=== PATIENT | male | born 2005 | race Caucasian/White ===

== ENCOUNTER 2025-03-11 10:51 | Inpatient (IN) | payer MEDICAID ==
[~2025-03-11] VITALS: Ht 180.3 cm; Wt 105.3 kg
--- NOTE | 2025-03-11 11:06 | ELECTROCARDIOGRAPH REPORT ---
[facility] Test Date: 2025-03-11 Test Time: 11:02:47 Pat Name: DARY QUICK Department: [facility]- Patient ID: [facility]-[id number] Room: Gender: M Switchboard And Control Room Operator: : 2005 Requested By: BOO KERR Order Number: [id number] Reading MD: Measurements Intervals Cody Rate: 161 P: 58 DE: 119 QRS: -16 QRSD: 97 T: 33 QT: 254 QTc: 416 Interpretive Statements Sinus tachycardia RSR' in V1 or V2, probably normal variant Probable LVH with secondary repol abnrm Please click the below link to view image of tracing.
[2025-03-11] MEDS: normal saline 1000ml 1,000 ML IV ONE ×3 (11:25→13:48)
--- NOTE | 2025-03-11 11:31 | Physician Documentation ---
History of Present Illness ~ Chief Complaint: Cough w/fever Stated Complaint: COLD SYMPTOMS WITH CP Time Seen by MD: 11:06 HPI 19 year old male patient who is currently studying at [employer], came in to ED with chief complaints of recurrent episodes of fever since the 27 of February. Initially went to [place] urgent care however notice a had mild shortness of breath and tachycardia and was redirected to our emergency department. Patient stated that he recorded a temperature on the 27 of February and since then has had multiple episodes associated with mild headaches, nausea and with diffuse myalgias throughout. He noticed his tempera ture comes down after taking the Tylenol and records again after some time. 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 Patient endorsed runny nose, fatigue, tiredness, sore throat, mild headache, cough with minimal sputum. He also complained of increased shortness of breath while taking deep breaths. He denied any sexual history, any active lesions on his body, abdominal pain or ulcers in his mouth or tenderness/stiffness of his neck Medication Reconciliation Allergies: Coded Allergies: lactose (Verified Allergy, Unknown, 03/12/25) Lactose Intolerant Scheduled Cholecalciferol (Vitamin D3) (Vitamin D3), 2 TAB PO DAILY, (Reported) Guanfacine HCl (Guanfacine HCl ER), 1 TAB PO DAILY, (Reported) Lactobacillus Rhamnosus (Culturelle), 1 CAP PO DAILY Levofloxacin (Levofloxacin), 1 TAB PO DAILY Multivitamin (Multivitamin), 1 TAB PO DAILY, (Reported) Past Medical History Past Medical History: *PSYCH* (ADHD, recently started taking guaifenesin tablets) Smoking Status: Never smoker Alcohol Use: None Drug Use: none (Denied any history of smoking, alcohol, drug use. Denied any exposure to secondhand smoking as well) Review of Systems ROS Constitutional: Reports Fever, no dizziness, weakness noted, no decrease in appetite HEENT: Normal vision. Mild sore throat, no epistaxis,no tinnitus Cardiovascular: No chest pain/discomfort, palpitations, syncope. no pedal edema Respiratory: Reports sob, reports cough, no hemoptysis Gastrointestinal: No abdominal pain, nausea, vomiting. No diarrhea, melena. Genitourinary: No frquency, urgency, incontinence, nocturia. No dysuria, hematuria Musculoskeletal: Myalgia reported Endocrine: Reports fatigue, no polydipsia, no polyuria. No heat or cold intolerance Neurologic: No headache, vertigo. No weakness, numbness or tingling of extremities Psychiatric: No hallucinations/delusions, no anhedonia, no suicidal ideation Hematologic: No bruises Physical Exam Vital Signs: Temperature: 103.2, Source: Oral, Heart Rate: 168, Respiratory Rate: 16, BP: 135/83, Pulse Oximetry: 97, Weight: 105.300 Oxygen Flow Rate: 0 Physical Exam General: Awake, oriented to person, place and time HEENT: Conjunctive are pink, sclerae clear, no icterus, pupil is equal in both sides, reactive to light, no ear discharge, no pharyngeal erythema or an edema. Neck: Supple, no JVD, no lymphadenopathy and thyromegaly. Chest: Increased work of breathing noted, no additional sounds no rhonchi no wheezing at the moment. Cardiovascular: S1-S2 regular sinus rhythm, tachycardia, no gallops, no rubs, no murmurs Abdomen: No visible peristalsis, Bowel sounds present on auscultation, soft, no tenderness, no guarding, no rigidity Extremities: No obvious deformities, no pitting edema bilaterally, capillary refill intact, peripheral pulsations are intact on both sides Neurologic: Mental status: alert and conscious, oriented to place, person and time, preserved memory, normal speech. Cranial nerves I-XII: Normal. Motor system: Preserved power, coordination, no evidenced involuntary movements, strength 5/5 in four extremities. Sensory system: Preserved temperature, pain and vibration sensation. 2+ deep tendon reflexes in biceps, triceps, quadriceps. Negative Babinski. Cerebellar: No nystagmus, dysdiadochokinesia, normal [id number] testing. Musculoskeletal: No joint swelling, deformities, inflammations, and no scoliosis and back tenderness Skin: Warm and dry. Dry oral mucosa. Progress Results/Orders Results/Orders Orders - TIARA KIM RES Culture Blood (03/11/25 11:49) Completed Orders - TIARA KIM RES Cbc/Diff (03/11/25 11:21) CMP (03/11/25 11:21) Lacticsepsis (03/11/25 11:21) ESR (03/11/25 11:21) Procalcitonin (03/11/25 11:21) Acetaminophen 325mg Tablet (Tylenol Tabl (03/11/25 11:25) Influenza Type A&B Rapid Test (03/11/25 11:16) Man Diff (03/11/25 11:22) Lactic,2hr (03/11/25 12:57) Vital Signs 03/11/25 03/11/25 03/11/25 03/11/25 10:52 11:45 13:07 14:41 Temp 103.2 Pulse 168 137 128 125 Resp 16 12 15 B/P (MAP) 135/83 156/82 (106) 114/79 (91) 136/83 (100) Pulse Ox 97 95 95 91 O2 Flow Rate 0 0 0 0 03/11/25 03/11/25 17:18 18:02 Temp 99.4 Pulse 128 125 Resp 21 20 B/P (MAP) 137/88 (104) 123/78 (93) Pulse Ox 98 97 O2 Flow Rate 0 0 Laboratory Tests Test 03/11/25 11:16 03/11/25 11:22 03/11/25 12:40 03/11/25 13:06 Influenza Type A Antigen Negative Influenza Type B Antigen Negative SARS-CoV-2 Antigen (Rapid) Negative White Blood Count 25.1 *H Red Blood Count 4.51 L Hemoglobin 14.5 Hematocrit 41.4 L Mean Corpuscular Volume 91.7 Mean Corpuscular Hemoglobin 32.1 H Mean Corpuscular Hemoglobin Concent 34.9 Red Cell Distribution Width 11.8 Platelet Count 636 H Mean Platelet Volume 6.7 L Neutrophils (%) (Auto) 85.8 H Lymphocytes (%) (Auto) 6.6 L Monocytes (%) (Auto) 7.1 Eosinophils (%) (Auto) 0.3 Basophils (%) (Auto) 0.2 Neutrophils # (Auto) 21.5 H Lymphocytes # (Auto) 1.6 Monocytes # (Auto) 1.8 H Eosinophils # (Auto) 0.1 Basophils # (Auto) 0.1 CBC Comment Differential Total Cells Counted 100 Neutrophils % (Manual) 79.0 H Band Neutrophils % 8.0 Lymphocytes % (Manual) 7.0 L Monocytes % (Manual) 6.0 Platelet Estimate Increased Red Blood Cell Morphology Normal Basophilic Stippling Erythrocyte Sedimentation Rate 57 H Sodium Level 138 Potassium Level 3.6 Chloride Level 103 Carbon Dioxide Level 25.2 Anion Gap 10 Blood Urea Nitrogen 6 L Creatinine 0.82 Estimated GFR/1.73 m2 > 90 BUN/Creatinine Ratio 7.3 L Glucose Level 124 H Lactic Acid Level 2.1 H 0.8 Calcium Level 9.4 Total Bilirubin 0.9 Aspartate Amino Transf (AST/SGOT) 17 Alanine Aminotransferase (ALT/SGPT) 36 Alkaline Phosphatase 87 Total Protein 8.2 Albumin 3.6 Globulin 4.6 H Albumin/Globulin Ratio 0.8 L Procalcitonin < 0.05 Chemistry Comments Urine Specimen Description Urinal Urine Color Yellow Urine Clarity Clear Urine pH 7.5 Urine Specific [place] 1.010 Urine Protein Negative Urine Glucose (UA) Negative Urine Ketones Negative Urine Occult Blood Negative Urine Nitrite Negative Urine Bilirubin Negative Urine Urobilinogen 0.2 Urine Leukocyte Esterase Negative Volume Urine Centrifuged 10 ml Urine Comment Test 03/11/25 14:47 White Blood Count 19.3 H Red Blood Count 3.88 L Hemoglobin 12.7 L Hematocrit 36.3 L Mean Corpuscular Volume 93.6 Mean Corpuscular Hemoglobin 32.7 H Mean Corpuscular Hemoglobin Concent 34.9 Red Cell Distribution Width 11.7 Platelet Count 550 H Mean Platelet Volume 6.8 L Neutrophils (%) (Auto) 85.2 H Lymphocytes (%) (Auto) 7.9 L Monocytes (%) (Auto) 6.3 Eosinophils (%) (Auto) 0.1 Basophils (%) (Auto) 0.5 Neutrophils # (Auto) 16.4 H Lymphocytes # (Auto) 1.5 Monocytes # (Auto) 1.2 H Eosinophils # (Auto) 0.0 Basophils # (Auto) 0.1 CBC Comment Hemoglobin A1c 5.1 Microbiology Date/Time Source Procedure Growth Status 03/11/25 13:06 Blood Arm Left Blood Culture - Preliminary NO GROWTH AFTER 1 DAY Resulted EKG/XRAY/CT/US/VASC/MRI EKG : Additional Comment EKG as interpreted by ED MD indicating sinus tachycardia at a rate of 135 beats per minute, no ischemia, normal axis Chest X-Ray : Additional Comments PROCEDURE: DI CHEST,SINGLE VIEW ED physician read: Normal cardiac silhouette, no infiltrates, normal bony structures History: CP COMPARISON: None TECHNIQUE: Single view of the chest. FINDINGS: The lung parenchyma is clear. No pleural effusion. Cardiomediastinal silhouette is normal. IMPRESSION: 1. No acute cardiopulmonary disease. : Impression EXAM: CT CTA CHEST PE W/ IV CONTRAST HISTORY: r/o PE, assess for occult PNA COMPARISON: Chest x-ray from earlier same day. TECHNIQUE: Helical CT images of the chest were performed with 100 mL omnipaque 350 IV contrast using pulmonary CTA protocol. Sagittal and coronal reformatted images and 3D MIP images were obtained. This CT exam was performed using 1 or more of the following dose reduction techniques: Automated exposure control, adjustment of the mA and/or kv according to patient size, or the use of iterative reconstruction techniques. Radiation Dose: Chest: CTDI volume is 24.84 mGy. Dose-length product is 924 mGy*cm. FINDINGS: No central pulmonary arterial filling defects are identified. Suboptimal contrast timing and patient motion artifact limited evaluation of the more peripheral pulmonary arteries. There are patchy and confluence infiltrates in the right lower lobe inferomedially. There is central peribronchial thickening, greater on the right. No pneumothorax, consolidative infiltrates, pleural effusions, pulmonary edema, or noncalcified pulmonary nodules are identified. There are enlarged reactive lymph nodes in the right hilum.. The heart is not enlarged. The central pulmonary arteries are ectatic. No thoracic aortic aneurysm or dissection. There is moderate bilateral gynecomastia. IMPRESSION: 1. No evidence of central pulmonary embolism. Evaluation of the more peripheral pulmonary arteries is limited by suboptimal contrast timing and patient motion artifact. 2. Right lower lobe pneumonia. 3. Reactive airways disease. 4. Pulmonary arterial hypertension. Medical Decision Making Additional information obtaine: family Findings - Differential Dx:Considerations: Include: Influenza, Meningitis, Pneumonia, Pulmonary embolus, Respiratory failure, Sepsis, Viral Syndrome Additional Comment 19-year-old male presenting with sustained tachycardia and fever. Labs and imaging were ordered. Labs indicating severe leukocytosis with a WBC count of 25. Patient was also initially very tachycardic with a heart rate in the 130s to 140s. He was febrile with a fever of 102. He was given p.o. acetaminophen and started on IV fluids. He was given a total of 3 L of IV normal saline with only mild improvement of his heart rate to the 120s. Chest x-ray was unremarkable however given his sustained tachycardia a CT angiogram of the chest was done to rule out pulmonary embolism. It was negative for PE however it did indicate that he does have a occult pneumonia present. Patient was treated with IV ceftriaxone and IV azithromycin. Given these findings the patient needs antibiotic therapy and will be admitted for further treatment and care. All labs and imaging reviewed. Social determinants of health considered. Chronic medical conditions considered. Departure Disposition: ADMITTED INPATIENT Admitted to Inpatient Unit: to hospitalist Impression: Primary Impression: Pneumonia Additional Impressions: Leukocytosis Tachycardia Condition: Guarded Referrals: NO PRIMARY CARE PROVIDER (PCP) Prescriptions Lactobacillus Rhamnosus (Culturelle) 10 Billion Cell Capsule 1 CAP PO DAILY for 30 Days, #30 CAP 0 Refills Prov: JOAN DUBON, ALTON 03/12/25 Levofloxacin (Levofloxacin) 750 Mg Tablet 1 TAB PO DAILY for 7 Days, #7 TAB Prov: JOAN DUBON RES 03/12/25 Critical Care Note Total Time (mins): 35 Critical Care Note The very real possibility of a deterioration of this patient's condition required the highest level of my preparedness for sudden, emergent intervention. I provided critical care services, which included medication orders, frequent reevaluations of the patient's condition and response to treatment, ordering and reviewing test results, and discussing the case with various consultants. Excludes time spent performing separately billable procedures. The critical care time associated with the care of the patient was. Signature Scribe Signature: - Attestation: - TIARA KIM RES Mar 11, 2025 11:31 BOO KERR MD Mar 11, 2025 17:35
[2025-03-11 11:37] LABS: MEAN PLATELET VOLUME 6.7 FL (7.4-10.4); RED CELL DISTRIBUTION WIDTH 11.8 % (11.5-14.5)
--- NOTE | 2025-03-11 11:41 | RADIOLOGY REPORT ---
PROCEDURE: DI CHEST,SINGLE VIEW History: CP COMPARISON: None TECHNIQUE: Single view of the chest. FINDINGS: The lung parenchyma is clear. No pleural effusion. Cardiomediastinal silhouette is normal. IMPRESSION: 1. No acute cardiopulmonary disease.
[2025-03-11 11:53] LABS: INFLUENZA TYPE A ANTIGEN RAPID NEGATIVE (Negative); INFLUENZA TYPE B ANTIGEN RAPID NEGATIVE (Negative)
[2025-03-11 11:56] LABS: BANDS% (MANUAL) 8.0 % (0-10); LYMPHOCYTES % (MANUAL) 7.0 % (21-51); MONOCYTES % (MANUAL) 6.0 % (2-12); NEUTROPHILS % (MANUAL) 79.0 % (42-75); PLATELET ESTIMATE INCREASED
[2025-03-11 12:10] LABS: CREATININE 0.82 MG/DL (0.60-1.10); TOTAL CARBON DIOXIDE 25.2 MMOL/L (24-32); eCRCL 154 ML/MIN; eGFR > 90 ML/MIN
[2025-03-11] MEDS: CefTRIAXone/D5W-Rocephin 1gm 50 ML IV ONE (12:50)
[2025-03-11 12:59] LABS: LEUKOCYTE ESTERASE ,URINE NEGATIVE (Neg); NITRITES, URINE NEGATIVE (Neg); OCCULT BLOOD,URINE NEGATIVE (Neg)
[2025-03-11 13:02] LABS: UA COLLECTION TYPE URINAL
[2025-03-11 15:07] LABS: MEAN PLATELET VOLUME 6.8 FL (7.4-10.4); RED CELL DISTRIBUTION WIDTH 11.7 % (11.5-14.5)
[2025-03-11] MEDS ORDERED: iohexol 300mg/ml 100ml inj. ONE (15:40)
--- NOTE | 2025-03-11 16:39 | RADIOLOGY REPORT ---
EXAM: CT CTA CHEST PE W/ IV CONTRAST HISTORY: r/o PE, assess for occult PNA COMPARISON: Chest x-ray from earlier same day. TECHNIQUE: Helical CT images of the chest were performed with 100 mL omnipaque 350 IV contrast using pulmonary CTA protocol. Sagittal and coronal reformatted images and 3D MIP images were obtained. This CT exam was performed using 1 or more of the following dose reduction techniques: Automated exposure control, adjustment of the mA and/or kv according to patient size, or the use of iterative reconstruction techniques. Radiation Dose: Chest: CTDI volume is 24.84 mGy. Dose-length product is 924 mGy*cm. FINDINGS: No central pulmonary arterial filling defects are identified. Suboptimal contrast timing and patient motion artifact limited evaluation of the more peripheral pulmonary arteries. There are patchy and confluence infiltrates in the right lower lobe inferomedially. There is central peribronchial thickening, greater on the right. No pneumothorax, consolidative infiltrates, pleural effusions, pulmonary edema, or noncalcified pulmonary nodules are identified. There are enlarged reactive lymph nodes in the right hilum.. The heart is not enlarged. The central pulmonary arteries are ectatic. No thoracic aortic aneurysm or dissection. There is moderate bilateral gynecomastia. IMPRESSION: 1. No evidence of central pulmonary embolism. Evaluation of the more peripheral pulmonary arteries is limited by suboptimal contrast timing and patient motion artifact. 2. Right lower lobe pneumonia. 3. Reactive airways disease. 4. Pulmonary arterial hypertension.
[2025-03-11] MEDS: azithromycin/NS 500mg/250ml 250 ML IV ONE (17:09)
[2025-03-11] MEDS ORDERED: CHOL100012 PO (17:18)
[2025-03-11] MEDS ORDERED: GUAN1TAB28 PO (17:18)
[2025-03-11] MEDS ORDERED: MULT-1249 PO (17:18)
[2025-03-11] MEDS ORDERED: mag hydrox/Alum hydrox/simeth 30ml oral suspension PO PRN (18:10)
[2025-03-11] MEDS ORDERED: ondansetron/PF 4mg/2ml inj IV PRN (18:10)
[2025-03-11] MEDS ORDERED: potassium Cl 40MEQ/1/2NS 520ml 520 ML IV PRN (18:10)
[2025-03-11] MEDS ORDERED: magnesium Cl slow-release 64mg tablet PO PRN (18:10)
[2025-03-11] MEDS ORDERED: potassium Cl 20 mEq SR tablet PO PRN ×2 (18:10)
[2025-03-11] MEDS ORDERED: magnesium sulf-water 2g/50mL 50 ML IV PRN (18:10)
[2025-03-11] MEDS ORDERED: magnesium hydroxide 30ml (MOM) UD suspension PO PRN (18:10)
[2025-03-11] MEDS ORDERED: magnesium sulf-water 4G/100mL 100 ML IV PRN (18:10)
--- NOTE | 2025-03-11 18:28 | HISTORY AND PHYSICAL-Residence ---
History & Physical Providers to CC Resident Creating Document: BENJAMINALTON KHOURY ~ History of Present Illness Reason for Admit\Complaint: PNEUMONIA History of Present Illness This is a 19 year old male patient studying at [employer], came in to ED with chief complaints of recurrent episodes of fever since the 27 of February. Today he went to [place] urgent care where he was found to be tachycardic and was redirected to our emergency department. Patient stated that he recorded a temperature on the 27 of February and since then has had multiple episodes associated with mild headaches, nausea and with diffuse myalgias throughout. He noticed his temperature comes down after taking the Tylenol and records again after some time. 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 Patient endorsed runny nose, fatigue, tiredness, sore throat, mild headache, cough with minimal sputum. He denies any shortness of breath at present. He denied any sexual history, abdominal pain or ulcers in his mouth or tenderness/stiffness of his neck. Patient denies any recent travel history. Allergies: Coded Allergies: lactose (Verified Allergy, Unknown, 03/12/25) Lactose Intolerant Home Medications Home Medications Active Reported Multivitamin 1 Each Tablet 1 Tab PO DAILY 30 Days Vitamin D3 (Cholecalciferol (Vitamin D3)) 25 Mcg (1000 Unit) Tablet 2 Tab PO DAILY 30 Days Guanfacine HCl ER (Guanfacine HCl) 1 Mg Tab.er.24h 1 Tab PO DAILY 30 Days Past Medical History Past Medical History ADHD Past Surgical History Surgical History Comment No significant surgical history Past Social History Social History Comment Patient never smoked Never drank alcohol Patient lives in a dorm at [employer]. Alcohol Use: None Drug Use: None (Denied any history of smoking, alcohol, drug use. Denied any exposure to secondhand smoking as well) ROS ROS Constitutional: Reports Fever, no dizziness, weakness noted, no decrease in appetite HEENT: Normal vision. Mild sore throat, no epistaxis,no tinnitus Cardiovascular: No chest pain/discomfort, palpitations, syncope. no pedal edema Respiratory: No shortness of breath, reports cough, no hemoptysis Gastrointestinal: No abdominal pain, report nausea, no vomiting. No diarrhea, melena. Genitourinary: No frquency, urgency, incontinence, nocturia. No dysuria, hematuria Musculoskeletal: Myalgia reported Endocrine: Reports fatigue, no polydipsia, no polyuria. No heat or cold intolerance Neurologic: No headache, vertigo. No weakness, numbness or tingling of extremities Psychiatric: No hallucinations/delusions, no anhedonia, no suicidal ideation Hematologic: No bruises Exam Vitals: Vital Signs Date Time Temp Pulse Resp B/P (MAP) Pulse Ox O2 Delivery O2 Flow Rate FiO2 03/11/25 18:02 99.4 125 20 123/78 (93) 97 0 General: General: Awake, oriented to person, place and time HEENT: Conjunctive are pink, sclerae clear, no icterus, pupil is equal in both sides, reactive to light, no ear discharge, no pharyngeal erythema or an edema. Neck: Supple, no JVD, no lymphadenopathy and thyromegaly. Chest: no additional sounds no rhonchi no wheezing at the moment. Cardiovascular: S1-S2 regular sinus rhythm, tachycardia, no gallops, no rubs, no murmurs Abdomen: No visible peristalsis, Bowel sounds present on auscultation, soft, no tenderness, no guarding, no rigidity Extremities: No obvious deformities, no pitting edema bilaterally, capillary refill intact, peripheral pulsations are intact on both sides Neurologic: Mental status: alert and conscious, oriented to place, person and time, preserved memory, normal speech. Cranial nerves I-XII: Normal. Motor system: Preserved power, coordination, no evidenced involuntary movements, strength 5/5 in four extremities. Sensory system: Preserved temperature, pain and vibration sensation. 2+ deep tendon reflexes in biceps, triceps, quadriceps. Negative Babinski. Cerebellar: No nystagmus, dysdiadochokinesia, normal [id number] testing. Musculoskeletal: No joint swelling, deformities, inflammations, and no scoliosis and back tenderness Skin: Warm and dry. Dry oral mucosa. Diagnostic Data Last Recorded Lab Results: 03/11/25 1447 03/11/25 1122 Advance Care Planning Advanced Care plannin - 30 Minutes (Full code) Additional Plan Possible community-acquired pneumonia Covering Gram-positive, Gram-negative, atypicals Sepsis Patient meeting SIRS criteria Patient given 3 L fluids NS in the ED. One dose of ceftriaxone and azithromycin were given in the ED Serology negative for COVID and influenza type a type B Initial WBC count at 11:22 a.m. was 25.1, down trending to 19.3 around 3:00 p.m., procalcitonin normal Elevated ESR 57 Lactic acid was initially high 2.1, down trending to 0.8. Patient having flu-like symptoms with fevers, myalgias, cough Patient currently recording high temperatures 100.4 and is tachycardic with heart rate of 132 He denies any complaints of shortness of breath, chest pain, palpitations CTA chest/thorax shows no evidence of pulmonary embolism, right lower lobe pneumonia Started the patient on Levaquin 750 mg IV. Tylenol 650 mg p.o. p.r.n. for fevers Fluids NS at 100 cc/hour. ADHD- Patient currently on guanfacine Code Status: Full code DVT prophylaxis: Heparin Analgesia/sedation: Tylenol Line/tube: PIV Nutrition: Regular diet Prognosis: Guarded Peng James PGY-1 Date of Service: Mar 11, 2025 Billing Provider: DIXON GONZALEZ MD Common Visit Codes: [id number] INP/OBS CARE (HIGH) Secondary Visit Codes: [id number] CARE PLAN 30 MINUTES PENG JAMES, RES Mar 11, 2025 18:28 DIXON GONZALEZ MD Mar 13, 2025 05:55
[2025-03-11] MEDS: normal saline 1000ml 1,000 ML IV SCH (19:00)
[2025-03-11] MEDS: K and/or MAG REPLACEMENT MC SCH (20:00)
[2025-03-11] MEDS: heparin, porcine 5000 units/ml vial SQ SCH (20:00)
[2025-03-11] MEDS: docusate sod 100mg capsule PO SCH (20:00)
[2025-03-11 21:30] VITALS: BP 134/77; PULSE 128; RESP 22; TEMP 99.7; O2SAT 98
[2025-03-11 22:00] VITALS: RESP 22; O2SAT 98
[2025-03-12 02:00] VITALS: BP 113/60; PULSE 100; RESP 20; TEMP 98.8; O2SAT 94
[2025-03-12 06:00] VITALS: BP 136/82; PULSE 99; RESP 17; TEMP 97.9; O2SAT 97
[2025-03-12 08:00] VITALS: RESP 17; O2SAT 97
[2025-03-12] MEDS: levoFLOXACIN-Levaquin 750MG/D5 150 ML IV SCH (08:06)
[2025-03-12 08:12] LABS: MEAN PLATELET VOLUME 6.7 FL (7.4-10.4); RED CELL DISTRIBUTION WIDTH 12.1 % (11.5-14.5)
[2025-03-12 08:34] LABS: CHOL/HDL RATIO 4.0 (0.00-4.99); CREATININE 0.70 MG/DL (0.60-1.10); LDL CHOLESTEROL 74 MG/DL (50-100); TOTAL CARBON DIOXIDE 26.4 MMOL/L (24-32); eCRCL 181 ML/MIN; eGFR > 90 ML/MIN
[2025-03-12] MEDS ORDERED: LEVO750T68 PO (10:09)
[2025-03-12] MEDS ORDERED: LACT1CAP26 PO (10:09)
[2025-03-12 11:00] VITALS: BP 132/87; PULSE 90; RESP 20; TEMP 97.8; O2SAT 96
--- NOTE | 2025-03-12 17:05 | DISCHARGE SUMMARY-Residence ---
Discharge Summary Providers to CC Resident Creating Document: JOAN DUBON, RES CC: DIXON GONZALEZ MD ~ Discharge Summary Admission Diagnosis: Pneumonia Hospital Course DATE OF ADMISSION: 03/11/25 DATE OF DISCHARGE: 03/12/25 Discharge Diagnosis\Comment: Community-acquired right lobular pneumonia Sepsis, POA ADHD Operations\Procedures: NONE Consultants: None Complications: None Condition on DC: Stable New Medications: Lactobacillus Rhamnosus (Culturelle) 10 Billion Cell Capsule 1 CAP PO DAILY for 30 Days, #30 CAP 0 Refills Levofloxacin (Levofloxacin) 750 Mg Tablet 1 TAB PO DAILY for 7 Days, #7 TAB Continued Medications: Cholecalciferol (Vitamin D3) (Vitamin D3) 25 Mcg (1000 Unit) Tablet 2 TAB PO DAILY for 30 Days, #30 TAB 0 Refills Guanfacine HCl (Guanfacine HCl ER) 1 Mg Tab.er.24h 1 TAB PO DAILY for 30 Days, #30 TAB 0 Refills Multivitamin (Multivitamin) 1 Each Tablet 1 TAB PO DAILY for 30 Days, #30 TAB 0 Refills Discharge Summary: A 19-year-old male with past medical history of ADHD presented to the ED in view of shortness of breaths and tachycardia. Patient had fever, cough with sputum production since a week before presentation to the urgent Care. At urgent care patient has had tachycardia and while they were trying to an EKG patient's start ed to have mild chest tightness. Therefore patient was transferred to the [facility] ER. On arrival to the ED on further evaluation patient was found to have right lobular pneumonia. CTA chest ruled out pulmonary embolism. Patient had elevated WBC count at the time of admission. Patient was started on levofloxacin, patient's WBC count started to improve and started to feel symptomatically better. As patient is hemodynamically stable patient has been discharged. Physical examination at the time of discharge: General: Alert, awake, oriented, not in acute distress HEENT: PERRLA, no icterus, pallor, lymphadenopathy, carotid bruit Respiratory system: Bilateral vesicular breath sounds heard, no adventitious breath sounds CVS: S1-S2 heard, no murmurs/rubs/gallop GI: Soft, nontender, no organomegaly, no guarding/rigidity, bowel sounds present Neuro: No focal neurological deficits present Mental status exam: alert and consciousness, orientation, memory, speech - Cranial nerve test: Cranial nerves 2-12 intact - Motor system: Nutrition, Tone 3+, Power 5/5, no involuntary movements - Sensory system: Intact - Reflex testing: Biceps, triceps and knee reflexes 2+ - Cerebellar: Normal Extremities: No edema cyanosis clubbing/deformities Skin: Warm and dry Labs at discharge: WBC count: 8.1, H/H: 12.9/37.4, platelet count: 490 Sodium: 143, potassium: 3.5, BUN: Four, creatinine: 0.7 Imaging: Chest x-ray: No acute cardiopulmonary disease. Chest/thorax CTA:Right lower lobe pneumonia.. No evidence of pulmonary embolism Discharge medications can be found above patient is discharged home with the following recommendations: Follow up with PCP within 2 weeks of discharge. Please take antibitoics for anaother week. Also please use OTC tylenol for fevre/ body aches. Return to ER in view of SOB, Fever and palpitations. *Problems/Diagnosis: (1) Pneumonia Status: Acute Total Time Spent on D/C: > 30 Minutes Date of Service: Mar 12, 2025 Billing Provider: DIXON GONZALEZ MD Common Visit Codes: 03748-GBR/OBS DISCH DAY >30min JOAN DUBON, RES Mar 12, 2025 17:05 DIXON GONZALEZ MD Mar 13, 2025 05:56
== END 2025-03-12 13:55 | disposition home or self-care (01) | DRG 720 ==
LOC: ER 10:52 → ED HOLD 18:16 → PCU 3S 21:30
PROVIDERS: ADMIT Internal Medicine; ATTEND Internal Medicine
PROC: B32T1ZZ Computerized Tomography (CT Scan) of Left Pulmonary Artery using Low Osmolar Contrast (ICD-10-PCS; principal; 2025-03-11)
PROC: B3201ZZ Computerized Tomography (CT Scan) of Thoracic Aorta using Low Osmolar Contrast (ICD-10-PCS; 2025-03-11)
PROC: B32S1ZZ Computerized Tomography (CT Scan) of Right Pulmonary Artery using Low Osmolar Contrast (ICD-10-PCS; 2025-03-11)
DX: A41.9 Sepsis, unspecified organism (principal); J18.1 Lobar pneumonia, unspecified organism; Z20.822 Contact with and (suspected) exposure to COVID-19; F90.9 Attention-deficit hyperactivity disorder, unspecified type
CPT/HCPCS: 36415; 71045; 71275; 80053; 80061; 81003; 83036; 83605; 83735; 84145; 85007; 85025; 85651; 87040; 87081; 87804; 87811; 93005; 96365; 99285; G0378; J0456; J0696; J1956; J7030; Q9967